=== PATIENT | female | born 1980 | race Caucasian/White ===

== ENCOUNTER 2017-02-24 23:19 | Emergency (ER) | payer OTHER ==
[2017-02-24] MEDS ORDERED: LORazepam 1 MG TAB PO ONE (23:39)
[2017-02-24 23:57] LABS: ADD DIFF? YES; ADD MORPH? NO; ADD SCAN? NO; ATYPICAL LYMPHOCYTE FLAG 0 (0-99); FRAGMENT RBC FLAG 0 (0-99); HEMATOCRIT 41.3 % (38.0-47.0); HEMOGLOBIN 13.2 g/dL (12.6-16.3); LEFT SHIFT FLG 30 (0-99); LIPEMIA HEMOLYSIS FLAG 80 (0-99); MEAN CELL HEMOGLOBIN 26.1 pg (27.9-34.1); MEAN CELL VOLUME 81.6 fL (81.5-99.8); MEAN PLATELET VOLUME 9.7 fL (8.7-11.7); PLATELET CLUMPS FLAG 0 (0-99); PLATELET COUNT 326 10^3/uL (150-400); RED BLOOD CELL COUNT 5.06 10^6/uL (4.18-5.33); RED CELL DISTRIBUTION WIDTH 14.2 % (11.5-15.2)
[2017-02-25 00:12] LABS: ETHANOL SERUM < 10 mg/dL (0-10)
[2017-02-25 00:28] LABS: PLATELET ESTIMATE ADEQUATE (ADEQ)
--- NOTE | 2017-02-25 02:19 | EDPHY ---
H & P Stated Complaint: DEPRESSED AND WANTS A MENTAL HEALTH EVALUATION Time Seen by Provider: 02/24/17 23:43 HPI/ROS: Chief Complaint: Depression HPI: 37-year-old woman along his stating history of depression presenting complaining of feeling depressed and does not want to live anymore. She denies any active suicidal plan but just which she were . He has had have a history of severe depression in the past has had multiple admissions to [facility]. Patient states that she has had ECT therapy in the past as well. Has been taking her medications but does not have a therapist or psychiatrist she is currently following. She currently feels hopeless and unable to carry on her normal activities of daily living. ROS: 10 point Review of Systems is negative except as noted in the HPI. PMH: Major depression Medications: Elavil and Xanax p.r.n. Allergies: No known drug allergies Social History: No smoking, no alcohol, no recreational drug use Family History: non-contributory Physical Exam: Gen: Awake, Alert, flattened affect HEENT: Nose: no rhinorrhea Eyes: PERRLA, EOMI Mouth: Moist mucosa Neck: Supple, no JVD Chest: nontender, lungs clear to auscultation Heart: S1, S2 normal, no murmur Abd: Soft, non-tender, no guarding Back: no CVA tenderness, no midline tenderness Ext: no edema, non-tender Skin: no rash Neuro: CN II-XII intact, Sensation grossly intact, Strength 5/5 in bilateral upper and lower extremities - Personal History LMP (Females 10-55): Now Current Tetanus/Diphtheria Vaccine: Yes Current Tetanus Diphtheria and Acellular Pertussis (TDAP): Yes - Medical/Surgical History Hx Asthma: No Hx Chronic Respiratory Disease: No Hx Diabetes: No Hx Cardiac Disease: No Hx Renal Disease: No Hx Cirrhosis: No Hx Alcoholism: No Hx HIV/AIDS: No Hx Splenectomy or Spleen Trauma: No Other PMH: DEPRESSION, ECT PT, - Social History Smoking Status: Never smoked Constitutional: Initial Vital Signs Temperature (C) 36.7 C 02/24/17 23:20 Heart Rate 114 H 02/24/17 23:20 Respiratory Rate 20 02/24/17 23:20 Blood Pressure 139/99 H 02/24/17 23:20 O2 Sat (%) 99 02/24/17 23:20 O2 Delivery Mode Room Air Allergies/Adverse Reactions: No Known Allergies Allergy (Unverified 02/24/17 23:35) Home Medications: Medication Instructions Recorded ALPRAZolam [Xanax 0.5 MG (*)] 0.5 mg PO TID 02/24/17 Amitriptyline HCl [Elavil 50 mg 02/24/17 (*)] Medical Decision Making ED Course/Re-evaluation: Patient has been seen by the mental health phd intern. Patient is not currently a danger to herself or others. She is destini for safety. Plan will be for the patient to follow up with [facility] tomorrow. Patient is in agreement with this plan. Will discharge with this plan in place with instructions return for any worsening suicidal thoughts. - Data Points Laboratory Results: Laboratory Results 02/24/17 23:47 02/24/17 02/24/17 02/24/17 23:50 23:47 23:47 WBC RBC Hgb Hct MCV MCH MCHC RDW Plt Count MPV Neut % (Auto) Lymph % (Auto) [place] % (Auto) Eos % (Auto) Baso % (Auto) Nucleat RBC Rel Count Absolute Neuts (auto) Absolute Lymphs (auto) Absolute Monos (auto) Absolute Eos (auto) Absolute Basos (auto) Absolute Nucleated RBC Immature Gran % Seg Neutrophils % Lymphocytes % Monocytes % Eosinophils % Metamyelocytes % Immature Gran # Absolute Seg Neuts Absolute Lymphocytes Absolute Monocytes Absolute Eosinophils Absolute Metamyelocyte RBC/WBC/PLT Morphology Platelet Estimate Beta HCG, Qual NEGATIVE Urine Opiates Screen NEGATIVE (NEGATIVE) Urine Barbiturates NEGATIVE (NEGATIVE) Ur Phencyclidine Scrn NEGATIVE (NEGATIVE) Ur Amphetamine Screen NEGATIVE (NEGATIVE) U Benzodiazepines Scrn NON-NEGATIVE H (NEGATIVE) Urine Cocaine Screen NEGATIVE (NEGATIVE) U Marijuana (THC) Screen NEGATIVE (NEGATIVE) Ethyl Alcohol < 10 mg/dL mg/dL (0-10) 02/24/17 23:47 WBC 9.74 10^3/uL H 10^3/uL (3.80-9.50) RBC 5.06 10^6/uL 10^6/uL (4.18-5.33) Hgb 13.2 g/dL g/dL (12.6-16.3) Hct 41.3 % % (38.0-47.0) MCV 81.6 fL fL (81.5-99.8) MCH 26.1 pg L pg (27.9-34.1) MCHC 32.0 g/dL L g/dL (32.4-36.7) RDW 14.2 % % (11.5-15.2) Plt Count 326 10^3/uL 10^3/uL (150-400) MPV 9.7 fL fL (8.7-11.7) Neut % (Auto) Not Reported Lymph % (Auto) Not Reported [place] % (Auto) Not Reported Eos % (Auto) Not Reported Baso % (Auto) Not Reported Nucleat RBC Rel Count 0.0 % % (0.0-0.2) Absolute Neuts (auto) Not Reported Absolute Lymphs (auto) Not Reported Absolute Monos (auto) Not Reported Absolute Eos (auto) Not Reported Absolute Basos (auto) Not Reported Absolute Nucleated RBC 0.00 10^3/uL 10^3/uL (0-0.01) Immature Gran % Not Reported Seg Neutrophils % 51 % % Lymphocytes % 36 % % Monocytes % 10 % % Eosinophils % 1 % % Metamyelocytes % 2 % % Immature Gran # Not Reported Absolute Seg Neuts 4.97 10^/uL 10^/uL (1.70-6.50) Absolute Lymphocytes 3.51 10^3/uL H 10^3/uL (1.00-3.00) Absolute Monocytes 0.97 10^3/uL H 10^3/uL (0.30-0.80) Absolute Eosinophils 0.10 10^3/uL 10^3/uL (0.03-0.40) Absolute Metamyelocyte 0.19 10^3/mL H 10^3/mL (0.00-0.00) RBC/WBC/PLT Morphology NORMAL (NORMAL) Platelet Estimate ADEQUATE (ADEQ) Beta HCG, Qual Urine Opiates Screen Urine Barbiturates Ur Phencyclidine Scrn Ur Amphetamine Screen U Benzodiazepines Scrn Urine Cocaine Screen U Marijuana (THC) Screen Ethyl Alcohol Medications Given: Discontinued Medications Lorazepam (Ativan) 1 mg PO EDNOW ONE Stop: 02/24/17 23:40 Last Admin: 02/24/17 23:56 Dose: 1 mg Departure - Departure Disposition: Home, Routine, Self-Care Clinical Impression: Severe major depression Condition: Good Instructions: Depression (ED) Additional Instructions: Follow up with [facility] tomorrow. Return to the emergency depart for increasing depression, suicidal thoughts, worsening hopelessness, or any other concerns. Referrals: [facility] [Outside] - As per Instructions
[2017-02-25] MEDS ORDERED: IBUPROFEN 600 MG TAB PO ONE (04:48)
[2017-02-25 05:03] VITALS: BP 123/89; PULSE 101; RESP 16; TEMP 97.7; O2SAT 94
== END 2017-02-25 05:00 | disposition home or self-care (01) ==
DX: F32.9 Major depressive disorder, single episode, unspecified (principal)
CPT/HCPCS: 80305; G0480

== ENCOUNTER 2017-06-07 17:58 | Emergency (ER) | payer OTHER ==
[2017-06-07 18:26] VITALS: RESP 16
--- NOTE | 2017-06-07 18:27 | EDPHY ---
H & P Time Seen by Provider: 06/07/17 18:12 HPI/ROS: CHIEF COMPLAINT: Depression HISTORY OF PRESENT ILLNESS: 37-year-old female presents to the emergency department by private vehicle feeling increasingly depressed and suicidal. Patient has a longstanding history of depression. This is typically around her menstrual cycle. She has recently increased her Prozac. Most recently about 1 month ago her doctor tried starting her on oral contraceptive pills. She does not feel that any of this has really helped. She has had ECT in the past, most recently was in September of 2016. She did not find this helpful. She does not want to have ECT again. She denies abdominal pain. Denies chest pain or difficulty breathing. She feels extremely anxious. She has taken medication for anxiety in the past. She states that she has had suicidal thoughts in her plan would be to take her 's insulin. She has no homicidal ideation. No auditory visual hallucinations. REVIEW OF SYSTEMS: Constitutional: No fever, no chills. Eyes: No double or blurry vision. ENT: No sore throat. Respiratory: No cough, no shortness of breath. Cardiac: No chest pain. Gastrointestinal: No abdominal pain, vomiting or diarrhea. Genitourinary: No dysuria. Musculoskeletal: No neck or back pain. Skin: No rashes. Neurological: No headache. 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 Tearful. Anxious. Eyes: Pupils equal and round. Extraocular motions are all intact. ENT: Mouth: Mucous membranes moist. Respiratory: No wheezing, rhonchi, or rales, lungs are clear to auscultation. Cardiovascular: Regular rate and rhythm. Gastrointestinal: Abdomen is soft and nontender, no masses, no rebound or guarding, bowel sounds normal. Neurological: Alert and oriented x 3, cranial nerves II through XII grossly intact Skin: Warm and dry, no rashes. Musculoskeletal: Nontender to palpate along the cervical, thoracic or lumbar spine. Neck is supple. Extremities: Full range of motion and no peripheral edema. Psychiatric: Patient is oriented X 3, there is no agitation. Constitutional: Initial Vital Signs Temperature (C) 37.3 C 06/07/17 18:02 Heart Rate 88 06/07/17 18:02 Respiratory Rate 16 10/27/17 18:02 Blood Pressure 126/91 H 06/07/17 18:02 O2 Sat (%) 96 06/07/17 18:02 O2 Delivery Mode Room Air Allergies/Adverse Reactions: No Known Allergies Allergy (Verified 06/07/17 18:00) Home Medications: Medication Instructions Recorded Control Pills 06/07/17 IMITREX 06/07/17 Prozac 10 MG (*) 06/07/17 Medical Decision Making ED Course/Re-evaluation: Patient is extremely anxious feels depressed. She was placed on a detainer by myself. Was given 1 mg of Ativan p.o.. Patient was evaluated by mental health. She is no longer feeling suicidal. She is comfortable being discharged home. The mental health relocation services specialist had also talk with the patient in the past and states that the patient is reliable and keep her follow-up appointments. She will follow up with the therapist and her psychiatrist. Differential Diagnosis: Depression including functional and major depression, situational depression, medication side effect, drugs and alcohol abuse. - Data Points Laboratory Results: Laboratory Results 06/07/17 20:10 06/07/17 20:10 06/07/17 06/07/17 06/07/17 20:20 20:10 20:10 WBC 11.75 10^3/uL H 10^3/uL (3.80-9.50) RBC 5.01 10^6/uL 10^6/uL (4.18-5.33) Hgb 13.6 g/dL g/dL (12.6-16.3) Hct 40.7 % % (38.0-47.0) MCV 81.2 fL L fL (81.5-99.8) MCH 27.1 pg L pg (27.9-34.1) MCHC 33.4 g/dL g/dL (32.4-36.7) RDW 14.1 % % (11.5-15.2) Plt Count 327 10^3/uL 10^3/uL (150-400) MPV 9.3 fL fL (8.7-11.7) Neut % (Auto) 66.0 % % (39.3-74.2) Lymph % (Auto) 23.6 % % (15.0-45.0) [place] % (Auto) 8.3 % % (4.5-13.0) Eos % (Auto) 0.7 % % (0.6-7.6) Baso % (Auto) 0.5 % % (0.3-1.7) Nucleat RBC Rel Count 0.0 % % (0.0-0.2) Absolute Neuts (auto) 7.76 10^3/uL H 10^3/uL (1.70-6.50) Absolute Lymphs (auto) 2.77 10^3/uL 10^3/uL (1.00-3.00) Absolute Monos (auto) 0.98 10^3/uL H 10^3/uL (0.30-0.80) Absolute Eos (auto) 0.08 10^3/uL 10^3/uL (0.03-0.40) Absolute Basos (auto) 0.06 10^3/uL 10^3/uL (0.02-0.10) Absolute Nucleated RBC 0.00 10^3/uL 10^3/uL (0-0.01) Immature Gran % 0.9 % % (0.0-1.1) Immature Gran # 0.10 10^3/uL 10^3/uL (0.00-0.10) Sodium 136 mEq/L mEq/L (134-144) Potassium 4.4 mEq/L mEq/L (3.5-5.2) Chloride 102 mEq/L mEq/L (97-110) Carbon Dioxide 22 mEq/l mEq/l (22-31) Anion Gap 12 mEq/L mEq/L (8-16) BUN 14 mg/dL mg/dL (7-23) Creatinine 0.8 mg/dL mg/dL (0.6-1.0) Estimated GFR > 60 Glucose 95 mg/dL mg/dL (70-100) Calcium 9.4 mg/dL mg/dL (8.5-10.4) TSH 2.410 uIU/mL uIU/mL (0.465-4.680) Beta HCG, Qual Urine Opiates Screen NEGATIVE (NEGATIVE) Urine Barbiturates NEGATIVE (NEGATIVE) Ur Phencyclidine Scrn NEGATIVE (NEGATIVE) Ur Amphetamine Screen NEGATIVE (NEGATIVE) U Benzodiazepines Scrn NON-NEGATIVE H (NEGATIVE) Urine Cocaine Screen NEGATIVE (NEGATIVE) U Marijuana (THC) Screen NEGATIVE (NEGATIVE) Ethyl Alcohol < 10 mg/dL mg/dL (0-10) 06/07/17 20:00 WBC RBC Hgb Hct MCV MCH MCHC RDW Plt Count MPV Neut % (Auto) Lymph % (Auto) [place] % (Auto) Eos % (Auto) Baso % (Auto) Nucleat RBC Rel Count Absolute Neuts (auto) Absolute Lymphs (auto) Absolute Monos (auto) Absolute Eos (auto) Absolute Basos (auto) Absolute Nucleated RBC Immature Gran % Immature Gran # Sodium Potassium Chloride Carbon Dioxide Anion Gap BUN Creatinine Estimated GFR Glucose Calcium TSH Beta HCG, Qual NEGATIVE Urine Opiates Screen Urine Barbiturates Ur Phencyclidine Scrn Ur Amphetamine Screen U Benzodiazepines Scrn Urine Cocaine Screen U Marijuana (THC) Screen Ethyl Alcohol Medications Given: Discontinued Medications Lorazepam (Ativan) 1 mg PO EDNOW ONE Stop: 06/07/17 19:26 Last Admin: 06/07/17 19:34 Dose: 1 mg Departure - Departure Disposition: Home, Routine, Self-Care Clinical Impression: Depression Qualifiers: Depression Type: unspecified Qualified Code(s): F32.9 - Major depressive disorder, single episode, unspecified Condition: Good Instructions: Depression (ED) Additional Instructions: Return to the emergency department if you developed any recurring suicidal ideation. Follow-up for mental health instructions. Referrals: Lillima Meredith MD [Primary Care Provider] - As per Instructions
[2017-06-07] MEDS ORDERED: LORazepam 1 MG TAB PO ONE (19:25)
[2017-06-07 20:20] LABS: % IMMATURE GRANULYOCYTES 0.9 % (0.0-1.1); ADD DIFF? NO; ADD MORPH? NO; ADD SCAN? NO; ATYPICAL LYMPHOCYTE FLAG 0 (0-99); FRAGMENT RBC FLAG 0 (0-99); HEMATOCRIT 40.7 % (38.0-47.0); HEMOGLOBIN 13.6 g/dL (12.6-16.3); LEFT SHIFT FLG 10 (0-99); LIPEMIA HEMOLYSIS FLAG 80 (0-99); MEAN CELL HEMOGLOBIN 27.1 pg (27.9-34.1); MEAN CELL HEMOGLOBIN CONCENTR. 33.4 g/dL (32.4-36.7); MEAN CELL VOLUME 81.2 fL (81.5-99.8); MEAN PLATELET VOLUME 9.3 fL (8.7-11.7); PLATELET CLUMPS FLAG 10 (0-99); PLATELET COUNT 327 10^3/uL (150-400); RED BLOOD CELL COUNT 5.01 10^6/uL (4.18-5.33); RED CELL DISTRIBUTION WIDTH 14.1 % (11.5-15.2)
[2017-06-07 20:37] LABS: ANION GAP 12 mEq/L (8-16); CALCIUM 9.4 mg/dL (8.5-10.4); CARBON DIOXIDE 22 mEq/l (22-31); CHLORIDE 102 mEq/L (97-110); CREATININE 0.8 mg/dL (0.6-1.0); ETHANOL SERUM < 10 mg/dL (0-10); GLOMERULAR FILTRATION RATE > 60; GLUCOSE 95 mg/dL (70-100); POTASSIUM 4.4 mEq/L (3.5-5.2); SODIUM 136 mEq/L (134-144)
[2017-06-07 22:36] VITALS: O2SAT 97
[2017-06-07 23:57] VITALS: BP 116/79; PULSE 82; TEMP 98.4
== END 2017-06-07 23:55 | disposition home or self-care (01) ==
DX: F32.9 Major depressive disorder, single episode, unspecified (principal)
CPT/HCPCS: 80305; G0480

== ENCOUNTER 2017-07-04 18:34 | Emergency (ER) | payer OTHER ==
--- NOTE | 2017-07-04 18:45 | EDPHY ---
H & P Smoking Status: Never smoked Time Seen by Provider: 07/04/17 18:36 HPI/ROS: CHIEF COMPLAINT: "I did something bad " HISTORY OF PRESENT ILLNESS: Patient is brought in by staff from her work, [employer]. Previous history of depression and anxiety on Prozac and Klonopin. Patient says she has a long history of depression and "does not understand" why she has depression and thinks that she will "never get better. "At 6:00 p.m. today in the parking lot prior to coming to work she says she took 18 of her 0.5 mg Klonopin tablets in an attempt to harm herself. The patient arrived tearful and upset at work, and proceeded to tell staff about her intentional medication ingestion; they brought her to the ED. Currently no medical complaints except for mild migraine. REVIEW OF SYSTEMS: Eye: no change in vision ENT: no sore throat Cardiac: no chest pain or syncope Pulmonary: no cough or SOB Abdomen: no vomiting, diarrhea, abdominal pain Musculoskeletal: no back pain Skin: no rash Neuro: HPI Constitutional: no fever : no urinary symptoms A comprehensive 10 point review of systems is otherwise negative aside from elements mentioned in the history of present illness. PAST MEDICAL HISTORY: Migraine headaches, depression anxiety Social history: Works at [employer], denies alcohol. , has children. History from staff as in HPI. General Appearance: Alert and conversant, cooperative. Eyes: No scleral icterus. ENT, Mouth: Normal mucous membranes. Respiratory: Normal respiratory effort, breath sounds equal, lungs are clear to auscultation. Cardiovascular: Regular rate and rhythm. Gastrointestinal: Abdomen is soft and non tender. Neurological: Alert and oriented x3. Normally conversant. Face symmetric, normal movement and sensation in all extremities. Skin: Warm and dry, no rashes. Musculoskeletal: No peripheral edema and no joint swelling. Psychiatric: Very tearful, depressed affect, admits to suicidal thinking. Emergency Department course/MDM: Patient placed on a mental health hold by myself for overdose and suicidal ideation. Close observation and monitoring for history of significant benzodiazepine ingestion less than 1 hour ago. 2204: Signed out to Amadeo, medically cleared for psych evaluation. (Ko Alvarado) Constitutional: Initial Vital Signs Temperature (C) 37.0 C 07/04/17 18:35 Heart Rate 110 H 07/04/17 18:35 Respiratory Rate 18 07/04/17 18:35 Blood Pressure 158/94 H 07/04/17 18:35 O2 Sat (%) 93 07/04/17 18:35 O2 Delivery Mode Room Air Allergies/Adverse Reactions: No Known Allergies Allergy (Verified 06/07/17 18:00) Home Medications: Medication Instructions Recorded Control Pills 06/07/17 Prozac 10 MG (*) 06/07/17 Clonazepam 07/04/17 Medical Decision Making - Diagnostics EKG Interpretation: 12-lead EKG interpreted by me; official reading is in trace master. My interpretation is sinus tachycardia rate 102 with normal intervals. (Ko Alvarado ) Differential Diagnosis: Differential diagnosis considered for depression including functional and major depression, situational depression, medication side effect, drugs and alcohol abuse. (Ko Alvarado) Other Provider: 22:00 care assumed by me from Dr. Alvarado pending mental health evaluation. 00:15 patient has been evaluated. She is not destini for safety. They will look for placement. 01:10 patient has been accepted to [facility] by Dr. Clemente Estevez, I have completed the EMTALA. (Will Childs) - Data Points Laboratory Results: Laboratory Results 07/04/17 18:34 07/04/17 18:34 07/04/17 07/04/17 07/04/17 21:31 18:34 18:34 WBC RBC Hgb Hct MCV MCH MCHC RDW Plt Count MPV Neut % (Auto) Lymph % (Auto) [place] % (Auto) Eos % (Auto) Baso % (Auto) Nucleat RBC Rel Count Absolute Neuts (auto) Absolute Lymphs (auto) Absolute Monos (auto) Absolute Eos (auto) Absolute Basos (auto) Absolute Nucleated RBC Immature Gran % Immature Gran # Sodium 140 mEq/L mEq/L (134-144) Potassium 3.9 mEq/L mEq/L (3.5-5.2) Chloride 105 mEq/L mEq/L (97-110) Carbon Dioxide 22 mEq/l mEq/l (22-31) Anion Gap 13 mEq/L mEq/L (8-16) BUN 17 mg/dL mg/dL (7-23) Creatinine 1.0 mg/dL mg/dL (0.6-1.0) Estimated GFR > 60 Glucose 140 mg/dL H mg/dL (70-100) Calcium 9.1 mg/dL mg/dL (8.5-10.4) Beta HCG, Qual NEGATIVE Salicylates < 1.0 mg/dL L mg/dL (2.0-20.0) Urine Opiates Screen NEGATIVE (NEGATIVE) Acetaminophen < 10 mcg/mL L mcg/mL (10-30) Urine Barbiturates NEGATIVE (NEGATIVE) Ur Phencyclidine Scrn NEGATIVE (NEGATIVE) Ur Amphetamine Screen NEGATIVE (NEGATIVE) U Benzodiazepines Scrn NON-NEGATIVE H (NEGATIVE) Urine Cocaine Screen NEGATIVE (NEGATIVE) U Marijuana (THC) Screen NEGATIVE (NEGATIVE) Ethyl Alcohol < 10 mg/dL mg/dL (0-10) 07/04/17 18:34 WBC 11.86 10^3/uL H 10^3/uL (3.80-9.50) RBC 5.34 10^6/uL H 10^6/uL (4.18-5.33) Hgb 14.5 g/dL g/dL (12.6-16.3) Hct 44.0 % % (38.0-47.0) MCV 82.4 fL fL (81.5-99.8) MCH 27.2 pg L pg (27.9-34.1) MCHC 33.0 g/dL g/dL (32.4-36.7) RDW 13.5 % % (11.5-15.2) Plt Count 358 10^3/uL 10^3/uL (150-400) MPV 9.5 fL fL (8.7-11.7) Neut % (Auto) 64.4 % % (39.3-74.2) Lymph % (Auto) 25.7 % % (15.0-45.0) [place] % (Auto) 7.0 % % (4.5-13.0) Eos % (Auto) 1.3 % % (0.6-7.6) Baso % (Auto) 0.6 % % (0.3-1.7) Nucleat RBC Rel Count 0.0 % % (0.0-0.2) Absolute Neuts (auto) 7.64 10^3/uL H 10^3/uL (1.70-6.50) Absolute Lymphs (auto) 3.05 10^3/uL H 10^3/uL (1.00-3.00) Absolute Monos (auto) 0.83 10^3/uL H 10^3/uL (0.30-0.80) Absolute Eos (auto) 0.15 10^3/uL 10^3/uL (0.03-0.40) Absolute Basos (auto) 0.07 10^3/uL 10^3/uL (0.02-0.10) Absolute Nucleated RBC 0.00 10^3/uL 10^3/uL (0-0.01) Immature Gran % 1.0 % % (0.0-1.1) Immature Gran # 0.12 10^3/uL H 10^3/uL (0.00-0.10) Sodium Potassium Chloride Carbon Dioxide Anion Gap BUN Creatinine Estimated GFR Glucose Calcium Beta HCG, Qual Salicylates Urine Opiates Screen Acetaminophen Urine Barbiturates Ur Phencyclidine Scrn Ur Amphetamine Screen U Benzodiazepines Scrn Urine Cocaine Screen U Marijuana (THC) Screen Ethyl Alcohol Medications Given: Discontinued Medications Diphenhydramine HCl (Benadryl) 25 mg PO EDNOW ONE Stop: 07/04/17 23:53 Last Admin: 07/05/17 00:14 Dose: 25 mg Quetiapine Fumarate (Seroquel) 25 mg PO EDNOW ONE Stop: 07/04/17 23:53 Last Admin: 07/05/17 00:14 Dose: 25 mg Departure - Departure Disposition: Other Psych, Not [place] Clinical Impression: Suicidal ideation Depression Qualifiers: Depression Type: major depressive disorder Major depression recurrence: recurrent Active/Remission status: currently active Major depression episode severity: severe Psychotic features: without psychotic features Qualified Code(s ): F33.2 - Major depressive disorder, recurrent severe without psychotic features Condition: Good Referrals: Patient,NotPresent [Unknown] - As per Instructions
[2017-07-04 18:50] LABS: ABSOLUTE IMMATURE GRANULOCYTES 0.12 10^3/uL (0.00-0.10); ADD DIFF? NO; ADD MORPH? NO; ADD SCAN? NO; ATYPICAL LYMPHOCYTE FLAG 0 (0-99); FRAGMENT RBC FLAG 0 (0-99); HEMOGLOBIN 14.5 g/dL (12.6-16.3); LEFT SHIFT FLG 0 (0-99); LIPEMIA HEMOLYSIS FLAG 80 (0-99); MEAN CELL HEMOGLOBIN 27.2 pg (27.9-34.1); MEAN CELL VOLUME 82.4 fL (81.5-99.8); MEAN PLATELET VOLUME 9.5 fL (8.7-11.7); PLATELET CLUMPS FLAG 0 (0-99); PLATELET COUNT 358 10^3/uL (150-400); RED BLOOD CELL COUNT 5.34 10^6/uL (4.18-5.33); RED CELL DISTRIBUTION WIDTH 13.5 % (11.5-15.2)
--- NOTE | 2017-07-04 18:57 | CPEKG ---
Heart Rate: 102 RR Interval: 588 P-R Interval: 156 QRSD Interval: 80 QT Interval: 336 QTC Interval: 438 P [place]: 34 QRS [place]: 69 T Wave [place]: 46 EKG Severity - OTHERWISE NORMAL ECG - EKG Impression: SINUS TACHYCARDIA Electronically Signed By: Ko Alvarado 04-Jul-2017 18:56:59
[2017-07-04 19:03] LABS: CALCIUM 9.1 mg/dL (8.5-10.4); CARBON DIOXIDE 22 mEq/l (22-31); CHLORIDE 105 mEq/L (97-110); ETHANOL SERUM < 10 mg/dL (0-10); GLOMERULAR FILTRATION RATE > 60; GLUCOSE 140 mg/dL (70-100); SALICYLATE < 1.0 mg/dL (2.0-20.0); SODIUM 140 mEq/L (134-144)
[2017-07-04 19:09] LABS: ANION GAP 13 mEq/L (8-16); POTASSIUM 3.9 mEq/L (3.5-5.2)
[2017-07-04] MEDS ORDERED: diphenhydrAMINE 25 MG CAP PO ONE (23:52)
[2017-07-04] MEDS ORDERED: QUEtiapine FUMARATE 25 MG TAB PO ONE (23:52)
[2017-07-05 00:52] VITALS: RESP 16
[2017-07-05 02:30] VITALS: BP 123/72
[2017-07-05 02:56] VITALS: PULSE 84; TEMP 98.2; O2SAT 5
== END 2017-07-05 02:56 ==
DX: T42.4X2A Poisoning by benzodiazepines, intentional self-harm, initial encounter (principal); F33.2 Major depressive disorder, recurrent severe without psychotic features
CPT/HCPCS: 80305; G0480

== ENCOUNTER 2017-12-19 13:31 | Emergency (ER) | payer OTHER ==
[2017-12-19 15:30] LABS: PLATELET COUNT 298 10^3/uL (150-400)
[2017-12-19] MEDS ORDERED: ACETAMINOPHEN 325 MG TAB PO ONE (15:32)
--- NOTE | 2017-12-19 16:06 | EDPHY ---
H & P Smoking Status: Never smoked Time Seen by Provider: 12/19/17 14:49 HPI/ROS: CHIEF COMPLAINT: Depression, suicidal ideation HISTORY OF PRESENT ILLNESS: 37-year-old female presents to the emergency department feeling depressed and suicidal. The patient has a history of bipolar. She has had recent increase in her lithium but she does not feel that it has helped at all. She denies substance abuse or alcohol. She has no plan. She has had a previous drug overdose in June of 2017. Denies auditory or visual hallucinations. She has been hospitalized in June of 2018 at [facility] for 2 weeks which she did find helpful. She has no other current complaints. REVIEW OF SYSTEMS: Constitutional: No fever, no chills. Eyes: No double or blurry vision. ENT: No sore throat. Respiratory: No cough, no shortness of breath. Cardiac: No chest pain. Gastrointestinal: No abdominal pain, vomiting or diarrhea. Genitourinary: No dysuria. Musculoskeletal: No neck or back pain. Skin: No rashes. Neurological: No headache. 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 Tearful. Eyes: Pupils equal and round. Extraocular motions are all intact. ENT: Mouth: Mucous membranes moist. Respiratory: No wheezing, rhonchi, or rales, lungs are clear to auscultation. Cardiovascular: Regular rate and rhythm. Gastrointestinal: Abdomen is soft and nontender, no masses, no rebound or guarding, bowel sounds normal. Neurological: Alert and oriented x 3, cranial nerves II through XII grossly intact Skin: Warm and dry, no rashes. Musculoskeletal: Nontender to palpate along the cervical, thoracic or lumbar spine. Neck is supple. Extremities: Full range of motion and no peripheral edema. Psychiatric: Patient is oriented X 3, there is no agitation. (Linh Bundy) Constitutional: Initial Vital Signs Temperature (C) 36.7 C 12/19/17 13:40 Heart Rate 80 12/19/17 13:40 Respiratory Rate 16 12/19/17 13:40 Blood Pressure 115/81 H 12/19/17 13:40 O2 Sat (%) 96 12/19/17 13:40 O2 Delivery Mode Room Air Allergies/Adverse Reactions: No Known Allergies Allergy (Verified 12/19/17 13:39) Home Medications: Medication Instructions Recorded Prozac 10 MG (*) 06/07/17 Triangle Carbonate 12/19/17 traZODone 12/19/17 Medical Decision Making ED Course/Re-evaluation: 37-year-old female presents to the emergency department feeling depressed and suicidal. She is placed on an M1 hold. She is awaiting mental health evaluation. (Linh Bundy) This patient was seen by mental health and felt appropriate for outpatient treatment of depression. She no longer feels suicidal. She has contracted for safety and will be discharged home with her . (Olivia Kramer) Differential Diagnosis: Depression including functional and major depression, situational depression, medication side effect, drugs and alcohol abuse. (Linh Bundy) Care Turn Over: Care will be turned over to Dr. Olivia Kramer at 5:00 p.m., shift change. (Linh Bundy) - Data Points Laboratory Results: Laboratory Results 12/19/17 15:00 12/19/17 15:00 12/19/17 12/19/17 12/19/17 15:36 15:00 15:00 WBC RBC Hgb Hct MCV MCH MCHC RDW Plt Count MPV Neut % (Auto) Lymph % (Auto) [place] % (Auto) Eos % (Auto) Baso % (Auto) Nucleat RBC Rel Count Absolute Neuts (auto) Absolute Lymphs (auto) Absolute Monos (auto) Absolute Eos (auto) Absolute Basos (auto) Absolute Nucleated RBC Immature Gran % Immature Gran # Sodium Potassium Chloride Carbon Dioxide Anion Gap BUN Creatinine Estimated GFR Glucose Calcium TSH Beta HCG, Qual NEGATIVE Urine Opiates Screen NEGATIVE (NEGATIVE) Urine Barbiturates NEGATIVE (NEGATIVE) Ur Phencyclidine Scrn NEGATIVE (NEGATIVE) Ur Amphetamine Screen NEGATIVE (NEGATIVE) U Benzodiazepines Scrn NON-NEGATIVE H (NEGATIVE) Triangle 0.3 mEq/L L mEq/L (0.6-1.2) Urine Cocaine Screen NEGATIVE (NEGATIVE) U Marijuana (THC) Screen NEGATIVE (NEGATIVE) Ethyl Alcohol 12/19/17 12/19/17 15:00 15:00 WBC 10.42 10^3/uL H 10^3/uL (3.80-9.50) RBC 5.24 10^6/uL 10^6/uL (4.18-5.33) Hgb 14.1 g/dL g/dL (12.6-16.3) Hct 44.5 % % (38.0-47.0) MCV 84.9 fL fL (81.5-99.8) MCH 26.9 pg L pg (27.9-34.1) MCHC 31.7 g/dL L g/dL (32.4-36.7) RDW 12.9 % % (11.5-15.2) Plt Count 298 10^3/uL 10^3/uL (150-400) MPV 9.7 fL fL (8.7-11.7) Neut % (Auto) 69.4 % % (39.3-74.2) Lymph % (Auto) 21.3 % % (15.0-45.0) [place] % (Auto) 6.4 % % (4.5-13.0) Eos % (Auto) 0.7 % % (0.6-7.6) Baso % (Auto) 0.5 % % (0.3-1.7) Nucleat RBC Rel Count 0.0 % % (0.0-0.2) Absolute Neuts (auto) 7.23 10^3/uL H 10^3/uL (1.70-6.50) Absolute Lymphs (auto) 2.22 10^3/uL 10^3/uL (1.00-3.00) Absolute Monos (auto) 0.67 10^3/uL 10^3/uL (0.30-0.80) Absolute Eos (auto) 0.07 10^3/uL 10^3/uL (0.03-0.40) Absolute Basos (auto) 0.05 10^3/uL 10^3/uL (0.02-0.10) Absolute Nucleated RBC 0.00 10^3/uL 10^3/uL (0-0.01) Immature Gran % 1.7 % H % (0.0-1.1) Immature Gran # 0.18 10^3/uL H 10^3/uL (0.00-0.10) Sodium 140 mEq/L mEq/L (135-145) Potassium 3.7 mEq/L mEq/L (3.5-5.2) Chloride 100 mEq/L mEq/L (97-110) Carbon Dioxide 27 mEq/l mEq/l (22-31) Anion Gap 13 mEq/L mEq/L (8-16) BUN 15 mg/dL mg/dL (7-23) Creatinine 0.9 mg/dL mg/dL (0.6-1.0) Estimated GFR > 60 Glucose 82 mg/dL mg/dL (70-100) Calcium 8.9 mg/dL mg/dL (8.5-10.4) TSH 2.950 uIU/mL uIU/mL (0.465-4.680) Beta HCG, Qual Urine Opiates Screen Urine Barbiturates Ur Phencyclidine Scrn Ur Amphetamine Screen U Benzodiazepines Scrn Triangle Urine Cocaine Screen U Marijuana (THC) Screen Ethyl Alcohol < 10 mg/dL mg/dL (0-10) Medications Given: Discontinued Medications Acetaminophen (Tylenol) 650 mg PO EDNOW ONE Stop: 12/19/17 15:33 Last Admin: 12/19/17 15:37 Dose: 650 mg Departure - Departure Disposition: Home, Routine, Self-Care Clinical Impression: Bipolar 1 disorder, Suicidal ideation Condition: Good Instructions: Suicide Prevention for Adults (ED) Additional Instructions: Follow-up with mental health as suggested. Please return if you are feeling like hurting yourself or have any concerns. Referrals: Lilliam Meredith MD [Primary Care Provider] - As per Instructions
[2017-12-19 18:26] VITALS: BP 132/69
== END 2017-12-19 18:22 | disposition home or self-care (01) ==
DX: R45.851 Suicidal ideations (principal); F31.9 Bipolar disorder, unspecified
CPT/HCPCS: 80305; G0480

== ENCOUNTER 2018-06-13 20:45 | Emergency (ER) | payer OTHER ==
--- NOTE | 2018-06-13 21:02 | EDPHY ---
H & P Stated Complaint: sayifeanyi oneil switched depress meds last week, increased dep, +etoh Source: Patient, Old records Exam Limitations: No limitations - Medical/Surgical History Hx Asthma: No Hx Chronic Respiratory Disease: No Hx Diabetes: No Hx Cardiac Disease: No Hx Renal Disease: No Hx Cirrhosis: No Hx Alcoholism: No Hx HIV/AIDS: No Hx Splenectomy or Spleen Trauma: No Other PMH: DEPRESSION, ECT PT, bipolar, c section x 3, d and c x 1 - Social History Smoking Status: Never smoked Time Seen by Provider: 06/13/18 21:01 HPI/ROS: HPI: This is a 38-year-old female who presents with Chief Complaint: sayifeanyi oneil switched depress meds last week, increased dep, +etoh Location:psych Quality: Depression, suicidal thoughts Duration: Today Signs and Symptoms: no auditory hallucinations, no visual hallucinations, + suicidal ideation with a plan, no homicidal ideation, no paranoia Timing: Acute on chronic Severity: Moderate to severe Context: 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 Patient has a history of bipolar depression with previous suicide attempt by overdose. She was admitted to [facility] last year. Patient reports that she has thought of overdosing or drinking excessively in order to cause bodily harm and to commit suicide. Patient admits to drinking 4 Mimosa and 2 margaritas today. Patient reports that she is currently in the process of switching medications. This process started last week. Modifying Factors: None Comment: ROS: A comprehensive 10 system review of systems is otherwise negative aside from elements mentioned in the history of present illness. MEDICAL/SURGICAL/SOCIAL HISTORY: Medical history: DEPRESSION, ECT PT, bipolar Surgical history: c section x 3, d and c x 1 Social history: Nonsmoker. Has 3 living children. Employed. CONSTITUTIONAL: Intoxicated, middle-aged white female, slurring words, awake and alert, no obvious distress HEENT: Atraumatic and normocephalic, PERRL, EOMI. Nares patent; no rhinorrhea; no nasal mucosal edema. Tympanic membranes clear. Oropharynx clear, no exudate and moist pink mucosa. Airway patent. No lymphadenopathy. No meningismus. Cardiovascular: Normal S1/S2, regular rate, regular rhythm, without murmur rub or gallop. PULMONARY/CHEST: Symmetrical and nontender. Clear to auscultation bilaterally. Good air movement. No accessory muscle usage. ABDOMEN: Soft, nondistended, nontender, no rebound, no guarding, no peritoneal signs, no masses or organomegaly. No CVAT. EXTREMITIES: 2/2 pulses, strength 5/5, no deformities, no clubbing, no cyanosis or edema. NEUROLOGICAL: no focal neuro deficits. GCS 15. SKIN: Warm and dry, no erythema. no rash. Good capillary refill. PSYCH: Fair eye contact, no flight of ideas, disorganized thought process, poor insight and judgment, no auditory hallucinations, no visual hallucinations , + suicidal ideation with a plan, no homicidal ideation, no paranoia (Jennifer,Terra) Constitutional: Initial Vital Signs Temperature (C) 36.8 C 06/13/18 20:49 Heart Rate 100 06/13/18 20:49 Respiratory Rate 18 06/13/18 20:49 Blood Pressure 121/85 H 06/13/18 20:49 O2 Sat (%) 89 L 06/13/18 20:49 O2 Delivery Mode Room Air O2 (L/minute) 2 Allergies/Adverse Reactions: No Known Allergies Allergy (Verified 06/13/18 20:54) Home Medications: Medication Instructions Recorded Prozac 10 MG (*) 06/07/17 [place] Carbonate 12/19/17 traZODone 12/19/17 Unk Depression Med 06/13/18 Medical Decision Making ED Course/Re-evaluation: Labs reviewed and show low oxygen level. Placed on M1 hold due to patient's severe major depression and suicidal ideation previous suicide attempt via overdose 1 year ago. Labs and UDS ordered. 2154: Notified by nurse that patient had a witnessed fall from the ER stretcher. Head CT and cervical CT scan ordered. ETOH= 271. IM Ativan 2 mg given 2226: Called by radiologist, Dr. Madsen, who advised that head CT scan shows no acute intracranial process. Cervical CT scan shows no acute cervical process. 2299: Labs reviewed and grossly unremarkable. Urine drug screen negative. 7: Notified by RN that patient now is sitting at the nurse's station as she continues to Bang her head against the wall. IM Haldol 5 mg and IM Ativan 2 mg given 0200: End of Shift. Signed over to Garcia once more sober, mental health evaluation and final disposition. This patient was seen under the supervision of my secondary supervising physician. I evaluated care for this patient independently. Discussed this patient with Dr. Richard. (Malathi Rodriguez) 0700AM: Signed over to Dr. Anderson. Pending EVAL (Ej Zelaya) I took over care of this patient at 7:00 a.m.. This patient is on an M1 hold for suicidal ideation and alcohol intoxication. The patient is awaiting evaluation by Behavioral Health. 10:00 a.m., the patient has been seen and evaluated by Behavioral Health. She admits to alcohol abuse and alcoholism. She is sober at this time. She is not suicidal. Behavioral Health request lifting of her M1 hold. They have provided her with follow-up and resources for outpatient management. The patient feels comfortable with this plan. She feels comfortable being discharged. She understands for follow-up. Return to emergency department precautions reviewed with her. All of her questions were answered. She was discharged from the emergency department in good condition. (Dylan Donis) This patient was initially evaluated and managed by the physician environmental emergencies assistant. I was the secondary supervising physician and agree with the plan of care. ( Chata Richard) Differential Diagnosis: Differential diagnosis includes but is not limited to psychosis, patricia, depression, suicidal ideation. (Malathi Rodriguez) - Data Points Laboratory Results: Laboratory Results 06/13/18 21:19 06/13/18 21:19 Medications Given: Discontinued Medications Haloperidol Lactate (Haldol Injection) 5 mg IM EDNOW ONE Stop: 06/13/18 23:58 Last Admin: 06/14/18 00:16 Dose: 5 mg Lorazepam (Ativan) 2 mg PO ONCE ONE Stop: 06/13/18 22:59 Last Admin: 06/13/18 23:19 Dose: 2 mg Lorazepam (Ativan Injection) 2 mg IM ONCE ONE Stop: 06/13/18 23:57 Last Admin: 06/14/18 00:16 Dose: 2 mg Departure - Departure Disposition: Home, Routine, Self-Care Clinical Impression: Alcoholic intoxication without complication, Bipolar affective, depress, severe , Depression Condition: Good Instructions: Depression (ED), Abuse of Alcohol (ED) Additional Instructions: Read and follow provided instructions. Follow-up with behavioral health as discussed in the emergency department. Return to the emergency department for worsening symptoms, suicidal thoughts or other serious concerns. Referrals: NONE *PRIMARY CARE P,. [Primary Care Provider] - As per Instructions
[2018-06-13 21:29] LABS: PLATELET COUNT 303 10^3/uL (150-400)
[2018-06-13] MEDS ORDERED: LORazepam 1 MG TAB ONE (22:46)
[2018-06-13] MEDS ORDERED: LORazepam 1 MG TAB PO ONE (22:58)
[2018-06-13] MEDS ORDERED: LORazepam 2 MG/ML INJ IM ONE (23:56)
[2018-06-13] MEDS ORDERED: HALOPERIDOL LACT 5 MG/ML INJ IM ONE (23:57)
--- NOTE | 2018-06-14 06:27 | ASMTLCPROG ---
Notes Note: Notes: [facility] notified pt's breathalyzer was zero. [facility] called to complete mental health evaluation. Date Signed: 06/14/2018 06:26 AM Electronically Signed By:Neena Parrish
[2018-06-14 10:37] VITALS: BP 110/70
== END 2018-06-14 11:14 | disposition home or self-care (01) ==
DX: F32.9 Major depressive disorder, single episode, unspecified (principal); F10.120 Alcohol abuse with intoxication, uncomplicated
CPT/HCPCS: 80305; G0480; J1630; J2060